=== PATIENT | male | born 1990 | race Caucasian/White ===

== ENCOUNTER 2018-05-13 06:21 | Inpatient (IN) | payer MEDICAID ==
[~2018-05-13] VITALS: Ht 175.3 cm; Wt 58.1 kg
--- NOTE | 2018-05-13 06:30 | NUR ---
PT BIB [facility]. COMP OF HAVING "R FOOT PAIN" NO ACUTE DISTRESS AT THIS TIME. PT ALERT AND RESPONSIVE TO VERBAL STIMULI. AWAITING MD PHELPS.
--- NOTE | 2018-05-13 07:22 | NUR ---
RADIO AT BEDSIDE.
--- NOTE | 2018-05-13 07:28 | NUR ---
RECEIVED REPORT FROM CHONG THOMAS FOR YOSEF
--- NOTE | 2018-05-13 07:48 | NUR ---
RADIOLOGY AT BEDSIDE FOR CXR
[2018-05-13 07:51] LABS: BASOPHILS # (AUTO) 0.1 /CMM (0.0-0.2); BASOPHILS % (AUTO) 0.7 % (0.0-2.0); EOSINOPHILS % (AUTO) 1.1 % (0.0-6.0); HEMATOCRIT 34 % (39-51); LYMPHOCYTES # (AUTO) 1.5 /CMM (0.8-4.8); LYMPHOCYTES % (AUTO) 15.2 % (20.0-44.0); MEAN CORPUSCULAR HGB CONC 33 g/dl (31.0-36.0); MEAN CORPUSCULAR VOLUME 93 fL (80-96); MONOCYTES # (AUTO) 0.8 /CMM (0.1-1.30); MONOCYTES % (AUTO) 7.5 % (2.0-12.0); NEUTROPHILS # (AUTO) 7.6 /CMM (1.8-8.9); NEUTROPHILS % (AUTO) 75.5 % (43.0-81.0); PLATELET COUNT (AUTO) 450 /CMM (150-450); RED BLOOD CELL COUNT(AUTO) 3.61 MIL/uL (4.5-6.0); WHITE BLOOD COUNT (AUTO) 10.1 K/uL (4.3-11.0)
[2018-05-13] MEDS ORDERED: KETOROLAC TROMETHAMINE INJ 30 MG/ML VIAL ONE (07:55)
[2018-05-13] MEDS ORDERED: PROPOFOL 20 ML IV ONE (07:55)
[2018-05-13] MEDS ORDERED: KETOROLAC TROMETHAMINE INJ 30 MG/ML VIAL IV ONE (08:00)
[2018-05-13] MEDS ORDERED: PROPOFOL 1,000 MG/100 ML BOTTLE IV ONE (08:00)
[2018-05-13 08:04] LABS: CALCIUM, SERUM 9.5 mg/dL (8.5-10.1); CREATININE 0.9 mg/dL (0.6-1.3); POTASSIUM 3.7 mmol/L (3.5-5.1)
--- NOTE | 2018-05-13 08:29 | NUR ---
Paged Yevgeniy Childers for consult
--- NOTE | 2018-05-13 08:29 | NUR ---
Paged Brayan Saldana for admission
--- NOTE | 2018-05-13 09:23 | NUR ---
REPORT GIVEN TO CHONG BAJWA FOR YOSEF
--- NOTE | 2018-05-13 10:00 | NUR ---
PT ARRIVED TO THE UNIT AT THIS TIME
[2018-05-13 10:05] VITALS: BP 134/82
--- NOTE | 2018-05-13 10:15 | NUR ---
ADMISSION NOTE PT BROUGHT TO FLOOR VIA DARWIN, A/O X3, BREATHING EVEN AND UNLABORED ON 2L VIA NC, NO COMPLAINTS OF PAIN OR DISTRESS AT THIS TIME, LEFT AC 20G IS PATENT AND INTACT, NOTED TO HAVE RIGHT ELBOW LACERATION WITH MARY/LEFT LEG SCAB/ LEFT FOOT WITH SCAB/ RIGHT HAND DISCOLORATION, PT IS CURRENTLY ON BEDREST, SAFETY PRECAUTIONS IN PLACE, CALL LIGHT WITHIN REACH, WILL MONITOR ACCORDINGLY
[2018-05-13] MEDS ORDERED: ACETAMINOPHEN 325 MG TABLET PO PRN (11:00)
[2018-05-13] MEDS ORDERED: ONDANSETRON HCL/PF 4 MG/2 ML VIAL IVP PRN (11:00)
[2018-05-13] MEDS ORDERED: ZOLPIDEM TARTRATE 5 MG TABLET PO PRN (11:00)
[2018-05-13] MEDS: IV NS 0.9% 1,000 ML IV PRN (13:20)
[2018-05-13 16:00] VITALS: BP 131/83
--- NOTE | 2018-05-13 16:13 | NUR ---
patient was offered bath multiple times but he refuses
--- NOTE | 2018-05-13 18:00 | NUR ---
PT ACCEPTED BED BATH
--- NOTE | 2018-05-13 18:20 | NUR ---
RN CLOSING NOTES PT IN BED AT LOWEST AND LOCKED POSITION WITH SIDE RAILS UP X2, A/O X3, BREATHING EVEN AND UNLABORED ON 2L VIA NC, PATIENT STATED A PAIN OF 7 BUT WHEN PAIN MEDS WERE OFFERED HE REFUSED, IV PATENT AND INTACT, SAFETY PRECAUTIONS IN PLACE, CALL LIGHT WITHIN REACH, ALL NEEDS ATTENDED TO, WILL ENDORSE TO CONVERTIBLE TOP INSTALLER RN FOR CONTINUITY OF CARE
[2018-05-13 19:58] VITALS: BP 107/60
--- NOTE | 2018-05-13 20:09 | NUR ---
RN MS OPENING NOTES RECEIVED PT IN BED, AWAKE, ALERT ORIENTED X4. BREATHING EVEN AND UNLABORED ON ROOM AIR. DENIES PAIN OR DISCOMFORT AT THE MOMENT. IV ACCESS ON THE L AC #20 WITH NS @75ML/HR. SPLINT ON THE RIGHT ANKLE IN PLACE, SURGERY TOMORROW, NPO AFTER MIDNIGHT. BED IN LOWEST LOCKER POSITION CALL LIGHT WITHIN REACH AT ALL TIMES, WILL CONTINUE TO MONITOR.
--- NOTE | 2018-05-14 06:13 | NUR ---
RN MS CLOSING NOTES PT REMAINS IN BED AWAKE ALERT AND ORIENTED X4, BREATHING EVEN AND UNLABORED ON ROOM AIR. IV ACCESS ON THE L AC#20 WITH NS @75ML/HR. NPO SINCE MIDNIGHT WITH POSSIBLE SURGICAL PROCEDURE IN THE DAY. NO SIGNIFICANT CHANGE IN CONDITION DURING SHIFT. BED IN LOWEST LOCKED POSITION, CALL LIGHT WITHIN REACH AT ALL TIMES. WILL ENDORSE TO DAY NURSE FOR YOSEF
[2018-05-14 07:26] LABS: BASOPHILS % (AUTO) 0.2 % (0.0-2.0); EOSINOPHILS % (AUTO) 1.8 % (0.0-6.0); HEMATOCRIT 34 % (39-51); HEMOGLOBIN 11.5 g/dL (13.5-17.5); LYMPHOCYTES # (AUTO) 1.2 /CMM (0.8-4.8); MEAN CORPUSCULAR HGB CONC 33 g/dl (31.0-36.0); MEAN CORPUSCULAR VOLUME 93 fL (80-96); MONOCYTES # (AUTO) 0.6 /CMM (0.1-1.30); MONOCYTES % (AUTO) 6.3 % (2.0-12.0); NEUTROPHILS # (AUTO) 8.2 /CMM (1.8-8.9); NEUTROPHILS % (AUTO) 79.7 % (43.0-81.0); PLATELET COUNT (AUTO) 444 /CMM (150-450); RED BLOOD CELL COUNT(AUTO) 3.69 MIL/uL (4.5-6.0); WHITE BLOOD COUNT (AUTO) 10.2 K/uL (4.3-11.0)
--- NOTE | 2018-05-14 07:48 | NUR ---
MS RN Opening Note Patient is currently asleep, resting in bed but easily arousable to name. Alert and oriented x 4. Able to make needs known, no complaints of pain or signs of distress at this time. Respirations even and unlabored, saturating on room air. Peripheral IV to the left AC 20 gauge, intact, patent and running NS at 75 ml/hr. Patient noted to have splint and wrap to the right ankle, clean, dry and intact. Currently NPO for possible surgical procedure. Safety and Fall precautions in place: bed in lowest and locked position, side rails up x2, call light and personal possessions within reach. Patient verbalized understanding of safety measures and current plan of care. Will continue to monitor and intervene as needed.
[2018-05-14 07:49] LABS: CALCIUM, SERUM 8.6 mg/dL (8.5-10.1); CREATININE 0.9 mg/dL (0.6-1.3); MAGNESIUM 1.6 mg/dL (1.8-2.4); PHOSPHORUS 2.5 mg/dL (2.5-4.9); POTASSIUM 3.4 mmol/L (3.5-5.1)
[2018-05-14 08:00] VITALS: BP 133/75
[2018-05-14 08:13] VITALS: BP 133/73
--- NOTE | 2018-05-14 11:13 | NUR ---
WOUND CARE CONSULT: PT PRESENTS WITH RT ELBOW STAPLED AREA WITH PURULENT DRAINAGE, PRESENT ON ADMISSION. RT LOWER LEG SPLINT NOTED. DEFER TO ORTHO FOR ABOVE. PT IS CONTINENT AT THIS TIME AND INDEPENDENT WITH BED MOBILITY. WILL SEE PRN. Addendum: 05/14/18 at 1114 by GABRIELLE GREEN WNDNU Amended: Links added.
[2018-05-14] MEDS: POTASSIUM CL. PREMIX PERIPHER. 50 ML IV SCH ×2 (11:26→12:26)
[2018-05-14] MEDS: HYDROCODONE/APAP 10/325MG 1 EA TABLET PO PRN (11:48)
--- NOTE | 2018-05-14 12:00 | NUR ---
Social service consult requested by Dr. Saldana for homelessness. Pt. is a 27 year old male who was admitted to [facility] for an ankle fracture. CHRISTI met with pt. bedside. Pt. is alert and oriented x 4. Pt. has tattoos on his arms. Pt. was cooperative with SW during the assessment. Pt. states he has been homeless for a couple of years on the streets in [place]. Pt's emergency contact is his mother Suzanne . According to the pt. his mother is aware of his hospitalization. Pt. receives approximately $800/ month in SSI and is willing to pay $600/ month for an independent living. CHRISTI referred pt. to [facility] from [facility] placement . [facility] met with the pt. and will look into an Independent living for the pt and follow up with SW. Pt. 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 Pt. denies smoking cigarettes as well. No other social service needs are required at this time. SW to await pt. being accepted into an Independent Living, if not pt. is willing to go to the [facility] upon discharge.
[2018-05-14] MEDS: Magnesium 1GM/D5W 100ML PREMIX 100 ML IV SCH ×2 (12:27→13:47)
[2018-05-14 16:12] VITALS: BP 113/63
[2018-05-14 16:21] VITALS: BP 113/63
--- NOTE | 2018-05-14 17:53 | NUR ---
MS CHONG Closing Note Patient is currently asleep, resting in bed but easily arousable to name. Alert and oriented x 4. Able to make needs known, no complaints of pain or signs of distress at this time. Respirations even and unlabored, saturating on room air. Peripheral IV to the left AC 20 gauge, intact, patent and running NS at 75 ml/hr. Patient noted to have splint and wrap to the right ankle, clean, dry and intact. Patient to be NPO at midnight for surgery, R ORIF tomorrow 05/15/18. Pain controlled with PRN medications. All due medications given. Safety and Fall precautions in place: bed in lowest and locked position, side rails up x2, call light and personal possessions within reach. Patient verbalized understanding of safety measures and current plan of care. Will endorse to machinist 2nd shift for continuity of care. Addendum: 05/14/18 at 1756 by SRAVANI TAYLOR RN Per ortho team, wound care to consult on patient's right elbow incision/wound. Infectious disease consult requested as well.
--- NOTE | 2018-05-14 19:55 | NUR ---
RN MS OPENING NOTES RECEIVED PT IN BED, AWAKE, ALERT ORIENTED X4. BREATHING EVEN AND UNLABORED ON ROOM AIR. SPLINT ON THE RIGHT ANKLE IN PLACE, DENIES PAIN OR DISCOMFORT AT THE MOMENT. IV ACCESS ON THE L AC #20 WITH NS @75ML/HR. POSSIBLE SURGERY TOMORROW, NPO AFTER MIDNIGHT, PT AWARE. BED IN LOWEST LOCKER POSITION CALL LIGHT WITHIN REACH AT ALL TIMES, WILL CONTINUE TO MONITOR.
[2018-05-15] VITALS: BP_SYST 117; BP_SYST 125; BP_DIAS 64; BP_DIAS 76
[2018-05-15] MEDS: IV NS 0.9% 1,000 ML IV PRN (05:33)
--- NOTE | 2018-05-15 06:16 | NUR ---
RN MS CLOSING NOTES PT REMAINS IN BED AWAKE ALERT AND ORIENTED X4, BREATHING EVEN AND UNLABORED ON ROOM AIR. IV ACCESS ON THE L AC#20 WITH NS @75ML/HR. NO COMPLAINT OF PAIN OR DISCOMFORT AT THIS TIME. REFUSED BED BATH. TOTAL OUTPUT OF 1950ML. NO SIGNIFICANT CHANGE IN CONDITION DURING SHIFT. BED IN LOWEST LOCKED POSITION, CALL LIGHT WITHIN REACH AT ALL TIMES. WILL ENDORSE TO DAY NURSE FOR YOSEF
[2018-05-15 07:32] LABS: CALCIUM, SERUM 9.2 mg/dL (8.5-10.1); CREATININE 0.8 mg/dL (0.6-1.3); MAGNESIUM 1.7 mg/dL (1.8-2.4); POTASSIUM 3.9 mmol/L (3.5-5.1)
--- NOTE | 2018-05-15 07:42 | NUR ---
MS RN Opening Note Patient is currently asleep, resting in bed but easily arousable to name. Alert and oriented x 4. Able to make needs known, no complaints of pain or signs of distress at this time. Respirations even and unlabored, saturating on room air. Peripheral IV to the left AC 20 gauge, intact, patent and running NS at 75 ml/hr. Patient noted to have splint and wrap to the right ankle, clean, dry and intact. Wound and Infectious disease consult this shift. R ORIF postponed for now per ortho team, patient aware. Safety and Fall precautions in place: bed in lowest and locked position, side rails up x2, call light and personal possessions within reach. Patient verbalized understanding of safety measures and current plan of care. Will continue to monitor and intervene as needed.
[2018-05-15 08:00] VITALS: BP 125/61
[2018-05-15] MEDS ORDERED: VANCOMYCIN 1 GM in IV D5W 250 ML IV ONE (11:00)
[2018-05-15] MEDS ORDERED: FEE PK DOSING 1 MIN EA MC ONE (11:13)
[2018-05-15] MEDS: HYDROCODONE/APAP 10/325MG 1 EA TABLET PO PRN (11:40)
[2018-05-15] MEDS: Magnesium 1GM/D5W 100ML PREMIX 100 ML IV SCH ×2 (12:19→15:00)
[2018-05-15] MEDS: PIPERACILLIN /TAZOBACTAM 3.375 G in IV D5W 50 ML IV SCH ×3 (12:42→23:07)
[2018-05-15] MEDS ORDERED: Magnesium 1GM/D5W 100ML PREMIX 100 ML IV SCH (14:00)
[2018-05-15 16:00] VITALS: BP 117/57
--- NOTE | 2018-05-15 19:00 | NUR ---
MS RN Closing Note Patient is currently asleep, resting in bed but easily arousable to name. Alert and oriented x 3-4, come episodes of confusion of time. Able to make needs known, no complaints of pain or signs of distress at this time. Respirations even and unlabored, saturating on room air. Peripheral IV to the left AC 20 gauge, intact, patent and running Zosyn as ordered, IVPB on NS. Patient noted to have splint and wrap to the right ankle, clean, dry and intact. Patient also with a dressing to the right elbow/forearm incision, clean, dry and intact. R ORIF postponed for now per ortho team, patient aware. Safety and Fall precautions in place: bed in lowest and locked position, side rails up x2, call light and personal possessions within reach. Patient verbalized understanding of safety measures and current plan of care. Will endorse to supervisor type photography for continuity of care.
--- NOTE | 2018-05-15 19:05 | NUR ---
RN MS OPENING NOTES RECEIVED PATIENT IN BED SLEEPING BUT EASILY AROUSABLE,RESPIRATIONS EVEN AND UNLABORED WITH EQUAL RISE AND FALL OF CHEST, DENIES ANY PAIN OR DISCOMFORT AT THIS TIME , ALERT AND ORIENTED X 3-4 ABLE TO MAKE NEEDS KNOWN, IV SITE TO LEFT AC #20 G INTACT AND PATENT , NO REDNESS, NO INFILTRATION PRESENT, URINAL AT BEDSIDE, FLUIDS AND TOILETING OFFERED, ON ISOLATION FOR MRSA NARES WITH CONTACT PRECAUTIONS RENDERED, ORIENTED TO STAFF AND CALL LIGHT AND KEPT WITHIN REACH, DRESSING REMAIN INTACT TO RIGHT ANKLE AND RIGHT ELBOW, SNACK PROVIDED, ALL NEEDS ATTENDED AT THIS TIME WILL CONTINUE TO MONITOR, SAFETY PRECAUTIONS IN PLACE, LOW BED AND LOCKED BED ALARM IN PLACE. REMANS COMFORTABLE AT THIS TIME.
[2018-05-15 20:27] VITALS: BP 117/64
[2018-05-15] MEDS: VANCOMYCIN 0.75 GM in IV D5W 250 ML IV SCH (21:18)
[2018-05-15] MEDS ORDERED: MUPIROCIN OINT 2% 22 GM TUBE ONE (22:51)
--- NOTE | 2018-05-15 23:04 | NUR ---
RN MS NOTES BACTROBAN OINT NOT IN PATIENT CASSETTE OR IN ROOM FAXED RN SUP RECEIVED OINTMENT AT THIS TIME WILL APPLY NOW
[2018-05-15] MEDS: MUPIROCIN OINT 2% 22 GM TUBE SCH (23:06)
[2018-05-16] MEDS: VANCOMYCIN 0.75 GM in IV D5W 250 ML IV SCH ×3 (03:11→20:25)
[2018-05-16] MEDS: PIPERACILLIN /TAZOBACTAM 3.375 G in IV D5W 50 ML IV SCH ×3 (06:03→17:00)
--- NOTE | 2018-05-16 06:35 | NUR ---
RN MS CLOSING NOTES PATIENT IN BED AWAKE ALERT AND ORIENTED X 4 ABLE TO MAKE NEEDS KNOWN, RESPIRATIONS EVEN AND UNLABORED WITH EQUAL RISE AND FALL OF CHEST, DENIES ANY PAIN OR DISCOMFORT AT THIS TIME, URINAL PROVIDED, SNACKS AND FLUIDS OFFERED, IV SITE TO LEFT AC #20 G INTACT AND PATENT, IVF RUNNING ORDERED. NO REDNESS, NO INFILTRATION PRESENT,SAFETY PRECAUTIONS IN PLACE, ALL NEEDS ATTENDED, DRESSINGS REMAIN INTACT TO RIGHT ANKLE AND RIGHT ELBOW, ALL DUE MEDS GIVEN WILL CONTINUE TO MONITOR AND ENDORSE TO NEXT SHIFT.
[2018-05-16 06:52] LABS: BASOPHILS # (AUTO) 0.1 /CMM (0.0-0.2); BASOPHILS % (AUTO) 0.8 % (0.0-2.0); EOSINOPHILS % (AUTO) 1.6 % (0.0-6.0); HEMATOCRIT 38 % (39-51); HEMOGLOBIN 12.4 g/dL (13.5-17.5); LYMPHOCYTES # (AUTO) 1.7 /CMM (0.8-4.8); LYMPHOCYTES % (AUTO) 17.3 % (20.0-44.0); MEAN CORPUSCULAR HGB CONC 33 g/dl (31.0-36.0); MEAN CORPUSCULAR VOLUME 93 fL (80-96); MONOCYTES # (AUTO) 0.7 /CMM (0.1-1.30); MONOCYTES % (AUTO) 7.2 % (2.0-12.0); NEUTROPHILS # (AUTO) 7.2 /CMM (1.8-8.9); NEUTROPHILS % (AUTO) 73.1 % (43.0-81.0); PLATELET COUNT (AUTO) 475 /CMM (150-450); RED BLOOD CELL COUNT(AUTO) 4.07 MIL/uL (4.5-6.0); WHITE BLOOD COUNT (AUTO) 9.8 K/uL (4.3-11.0)
[2018-05-16 07:06] LABS: CALCIUM, SERUM 9.5 mg/dL (8.5-10.1); CREATININE 0.9 mg/dL (0.6-1.3); MAGNESIUM 1.9 mg/dL (1.8-2.4); PHOSPHORUS 3.2 mg/dL (2.5-4.9); POTASSIUM 4.4 mmol/L (3.5-5.1)
--- NOTE | 2018-05-16 07:27 | NUR ---
RN OPENING NOTES PT RECIEVED IN BED AT LOWEST AND LOCKED POSITION WITH SIDE RAILS UPX2, A/O X4, NO S/S OF PAIN OR DISTRESS NOTED AT THIS TIME, BREATHING EVEN AND UNLABORED, IV PATENT AND INTACT, SAFETY PRECAUTIONS IN PLACE, CALL LIGHT WITHIN REACH, WILL MONITOR ACCORDINGLY
[2018-05-16 08:00] VITALS: BP 116/63
[2018-05-16] MEDS: MUPIROCIN OINT 2% 22 GM TUBE SCH ×2 (08:56→22:20)
[2018-05-16] MEDS: DAKINS QUARTER STRENGTH (0.125%) 480 ML BOTTLE TOP SCH (08:56)
[2018-05-16 16:00] VITALS: BP 116/61
[2018-05-16] MEDS: LACTOBACILLUS RHAMNOSUS GG 1 EACH CAP.SPRINK PO SCH (16:05)
--- NOTE | 2018-05-16 18:41 | NUR ---
RN CLOSING NOTES PT IN BED AT LOWEST AND LOCKED POSITION WITH SIDE RAILS UPX2, A/O X4, NO S/S OF PAIN OR DISTRESS NOTED AT THIS TIME, BREATHING EVEN AND UNLABORED, IV PATENT AND INTACT, RIGHT ARM DRESSING WAS CHANGED, SAFETY PRECAUTIONS IN PLACE, CALL LIGHT WITHIN REACH, ALL NEEDS WERE ATTENDED TO, WILL ENDORSE TO BODY MAKER RN FOR CONTINUITY OF CARE.
--- NOTE | 2018-05-16 19:00 | NUR ---
RN MS OPENING NOTES RECEIVED PATIENT IN BED SLEEPING BUT EASILY AROUSABLE,RESPIRATIONS EVEN AND UNLABORED WITH EQUAL RISE AND FALL OF CHEST, DENIES ANY PAIN OR DISCOMFORT AT THIS TIME , ALERT AND ORIENTED X 3-4 ABLE TO MAKE NEEDS KNOWN, IV SITE TO LEFT AC #20 G INTACT AND PATENT , NO REDNESS, NO INFILTRATION PRESENT IVF RUNNING ORDERED, URINAL AT BEDSIDE, FLUIDS AND TOILETING OFFERED, ON ISOLATION FOR MRSA NARES WITH CONTACT PRECAUTIONS RENDERED, ORIENTED TO STAFF AND CALL LIGHT AND KEPT WITHIN REACH, DRESSING REMAIN INTACT TO RIGHT ANKLE AND RIGHT ELBOW, SNACKS PROVIDED, ALL NEEDS ATTENDED AT THIS TIME WILL CONTINUE TO MONITOR, SAFETY PRECAUTIONS IN PLACE, LOW BED AND LOCKED BED ALARM IN PLACE. REMAINS COMFORTABLE AT THIS TIME.
[2018-05-16 20:00] VITALS: BP 106/57
[2018-05-16 20:55] VITALS: BP 106/57
[2018-05-17] MEDS: PIPERACILLIN /TAZOBACTAM 3.375 G in IV D5W 50 ML IV SCH ×4 (00:09→17:19)
--- NOTE | 2018-05-17 03:04 | NUR ---
RN MS NOTES RIGHT ELBOW DRESSING NOTED DISLODGING , WOUND CARE PROVIDED TO SITE ORDERED NEW DRESSINGS APPLIED. TOLERATED TREATMENT WELL ,NOTED PINK WOUND BED WITH MARY
--- NOTE | 2018-05-17 03:29 | NUR ---
RN MS NOTES PATIENT REFUSED VANCO TROUGH SCHEDULED FOR 299 EXPLAINED TO PATIENT BENEFIT. STATED "MIGHT LET US DO IN AM" CALLED RN PATIENT SERVICES PHARMACY AWARE OF FIRST VANCO TROUGH PER PHARMACY CONTINUE THIS DOSE
--- NOTE | 2018-05-17 03:35 | NUR ---
RN MS NOTES PATIENT REFUSED VANCOMYCIN AT THIS TIME. EXPLAINED RISKS AND BENEFITS REFUSED.
[2018-05-17] MEDS: VANCOMYCIN 0.75 GM in IV D5W 250 ML IV SCH ×3 (03:38→20:27)
--- NOTE | 2018-05-17 03:40 | NUR ---
rn ms notes refused to have ivf changed at this time, unable to change bag.will try to change at a different time.
[2018-05-17] MEDS: IV NS 0.9% 1,000 ML IV PRN (05:30)
--- NOTE | 2018-05-17 06:53 | NUR ---
RN MS CLOSING NOTES RECEIVED CALL FROM JUANY THOMSON EXPLAINED PATIENT REFUSED VANCO TROUGH AND VANCOMYCIN DOSE, EXPLAINED PATIENT AGREED TO LABS IN AM , PER PHARM DO VANCO TROUGH WITH AM LABS, PATIENT AGREED TO AM LABS AT THIS TIME , AWAKE ALERT AND ORIENTED X 4, RESPIRATIONS EVEN AND UNLABORED WITH EQUAL RISE AND FALL OF CHEST, DENIES ANY PAIN OR DISCOMFORT AT THIS TIME, ALL LINENS AND GOWN CHANGED, DRESSING REMAIN INTACT TO RIGHT ELBOW AND RIGHT LOWER EXTREMITY, HAD 1 BM THIS SHIFT, IV SITE TO LEFT UPPER ARM #20 G INTACT AND PATENT IVF RUNNING ORDERED, ALL NEEDS ATTENDED, WILL CONTINUE TO MONITOR AND ENDORSE TO NEXT SHIFT.
[2018-05-17 07:17] LABS: BASOPHILS # (AUTO) 0.1 /CMM (0.0-0.2); BASOPHILS % (AUTO) 1.4 % (0.0-2.0); EOSINOPHILS % (AUTO) 2.4 % (0.0-6.0); HEMATOCRIT 39 % (39-51); HEMOGLOBIN 12.8 g/dL (13.5-17.5); LYMPHOCYTES # (AUTO) 1.5 /CMM (0.8-4.8); LYMPHOCYTES % (AUTO) 19.4 % (20.0-44.0); MEAN CORPUSCULAR HGB CONC 33 g/dl (31.0-36.0); MEAN CORPUSCULAR VOLUME 94 fL (80-96); MONOCYTES # (AUTO) 0.5 /CMM (0.1-1.30); MONOCYTES % (AUTO) 6.1 % (2.0-12.0); NEUTROPHILS # (AUTO) 5.6 /CMM (1.8-8.9); NEUTROPHILS % (AUTO) 70.7 % (43.0-81.0); PLATELET COUNT (AUTO) 498 /CMM (150-450); WHITE BLOOD COUNT (AUTO) 7.9 K/uL (4.3-11.0)
[2018-05-17 07:35] LABS: CALCIUM, SERUM 9.4 mg/dL (8.5-10.1); CREATININE 0.9 mg/dL (0.6-1.3); MAGNESIUM 1.8 mg/dL (1.8-2.4); PHOSPHORUS 3.8 mg/dL (2.5-4.9); POTASSIUM 4.1 mmol/L (3.5-5.1)
[2018-05-17 08:00] VITALS: BP_SYST 138; BP_SYST 143; BP_DIAS 67; BP_DIAS 74
[2018-05-17] MEDS: LACTOBACILLUS RHAMNOSUS GG 1 EACH CAP.SPRINK PO SCH ×2 (08:04→16:17)
[2018-05-17] MEDS: MUPIROCIN OINT 2% 22 GM TUBE SCH ×2 (08:05→20:31)
[2018-05-17] MEDS: DAKINS QUARTER STRENGTH (0.125%) 480 ML BOTTLE TOP SCH (08:05)
--- NOTE | 2018-05-17 18:36 | NUR ---
RN CLOSING NOTES PT IN BED AT LOWEST AND LOCKED POSITION WITH SIDE RAILS UPX2, A/O X4, NO S/S OF PAIN OR DISTRESS NOTED AT THIS TIME, BREATHING EVEN AND UNLABORED, IV PATENT AND INTACT, CONSENTS WERE SIGNED FOR SURGICAL PROCEDURE THAT WILL TAKE PLACE TOMORROW, CURRENTLY NPO, SAFETY PRECAUTIONS IN PLACE, CALL LIGHT WITHIN REACH, ALL NEEDS WERE ATTENDED TO, WILL ENDORSE TO CHEESE SPECIALIST FOR CONTINUITY OF CARE
--- NOTE | 2018-05-17 19:15 | NUR ---
MS/RN OPENING NOTES PT WITH EYES CLOSED. OPENS EYES TO NAME. ON ROOM AIR, BREATHING EVEN AND UNLABORED. DENIES PAIN AT THIS TIME. PT FOR SURGERY TOMORROW. PT AWARE OF NPO STATUS POST MIDNIGHT. BED IN LOW/LOCKED POSITION WITH CALL LIGHT IN REACH. SIDE RAILS UP X3. DRESSING TO RIGHT ELBOW C/D/I. RIGHT LEG SPLINT ELEVATED ON PILLOW. WILL CONTINUE TO MONITOR
[2018-05-17 20:00] VITALS: BP 121/70
[2018-05-18] MEDS: IV NS 0.9% 1,000 ML IV PRN (00:12)
[2018-05-18] MEDS: PIPERACILLIN /TAZOBACTAM 3.375 G in IV D5W 50 ML IV SCH ×2 (00:12→06:59)
[2018-05-18] MEDS: VANCOMYCIN 0.75 GM in IV D5W 250 ML IV SCH ×2 (05:12→12:49)
[2018-05-18 05:31] LABS: BASOPHILS % (AUTO) 0.5 % (0.0-2.0); EOSINOPHILS % (AUTO) 2.8 % (0.0-6.0); HEMATOCRIT 37 % (39-51); HEMOGLOBIN 11.9 g/dL (13.5-17.5); LYMPHOCYTES # (AUTO) 1.7 /CMM (0.8-4.8); LYMPHOCYTES % (AUTO) 25.9 % (20.0-44.0); MEAN CORPUSCULAR HGB CONC 32 g/dl (31.0-36.0); MEAN CORPUSCULAR VOLUME 93 fL (80-96); MONOCYTES # (AUTO) 0.4 /CMM (0.1-1.30); MONOCYTES % (AUTO) 6.2 % (2.0-12.0); NEUTROPHILS # (AUTO) 4.2 /CMM (1.8-8.9); NEUTROPHILS % (AUTO) 64.6 % (43.0-81.0); PLATELET COUNT (AUTO) 490 /CMM (150-450); RED BLOOD CELL COUNT(AUTO) 3.97 MIL/uL (4.5-6.0); WHITE BLOOD COUNT (AUTO) 6.6 K/uL (4.3-11.0)
[2018-05-18 05:45] LABS: CALCIUM, SERUM 9.3 mg/dL (8.5-10.1); CREATININE 0.9 mg/dL (0.6-1.3); MAGNESIUM 1.7 mg/dL (1.8-2.4); PHOSPHORUS 3.6 mg/dL (2.5-4.9); POTASSIUM 4.2 mmol/L (3.5-5.1)
--- NOTE | 2018-05-18 07:00 | NUR ---
MS/RN CLOSING NOTES PT WITH EYES CLOSED. OPENS EYES TO NAME. ON ROOM AIR, BREATHING EVEN AND UNLABORED. NO S/S OF SOB OR PAIN AT THIS TIME. KEPT NPO FOR SCHEDULED SURGERY TODAY. CONSENTS SIGNED. CHECKLIST PARTIALLY COMPLETED. NO SIGNIFICANT CHANGES OVERNIGHT. ALL NEEDS MET. BED IN LOW/LOCKED POSITION WITH CALL LIGHT IN REACH. SIDE RAILS UP X3. ENDORSED TO DAY SHIFT RN YOSEF.
--- NOTE | 2018-05-18 07:05 | NUR ---
RN OPENING NOTES RECEIVED PATIENT IN BED RESTING. A/OX3-4, NO ACUTE DISTRESS, NO SOB. DENIED PAIN OR DISCOMFORT AT THIS TIME. IV ACCESS INTACT AND PATENT. KEPT NPO, SCHEDULED FOR SURGERY TODAY. KEPT PATIENT SAFE AND COMFORTABLE. BED IN LOW/LOCKED POSITION, SIDERAILS UPX2, CALL LIGHT IN REACH. WILL CONTNUE TO MONIOTR ACCORDINGLY.
[2018-05-18 08:00] VITALS: BP 107/69
[2018-05-18] MEDS: LACTOBACILLUS RHAMNOSUS GG 1 EACH CAP.SPRINK PO SCH ×2 (09:00→17:42)
[2018-05-18] MEDS: DAKINS QUARTER STRENGTH (0.125%) 480 ML BOTTLE TOP SCH (09:31)
[2018-05-18] MEDS: MUPIROCIN OINT 2% 22 GM TUBE SCH ×2 (09:33→21:45)
[2018-05-18] MEDS: Magnesium 1GM/D5W 100ML PREMIX 100 ML IV SCH ×2 (10:49→11:49)
--- NOTE | 2018-05-18 13:10 | NUR ---
PICKED UP FOR SURGERY BY OR TRANSP[facility]
[2018-05-18] MEDS ORDERED: MIDAZOLAM HCL 2 MG/2ML VIAL ONE (13:34)
[2018-05-18] MEDS ORDERED: ANESTHESIA TRAY IN PYXIS 1 EA TRAY MC ONE (13:34)
[2018-05-18] MEDS ORDERED: BUPIVACAINE MPF 0.5% W/EPI INJ 30 ML VIAL ONE (13:37)
[2018-05-18] MEDS ORDERED: LIDOCAINE HCL/PF 1% 30 ML SDV ONE (13:37)
[2018-05-18] MEDS ORDERED: BACITRACIN 50000 UNITS/VIAL ONE (13:38)
--- NOTE | 2018-05-18 15:00 | NUR ---
RETURNED TO THE UNIT IN STABLE CONDITION. AWAKE AND RESPONSIVE. ORDERS TO RESUME PRE-OP ORDERS NOTED AND WILL CARRY OUT. VS SAPPHIRE. SHANA CONTINUE TO MONIOTR ACCORDINGLY
[2018-05-18 15:05] VITALS: BP 116/58
[2018-05-18] MEDS: CLINDAMYCIN HCL 150 MG CAPSULE PO SCH ×2 (15:14→21:41)
--- NOTE | 2018-05-18 18:01 | NUR ---
PULLED OUT AND WASTED CLINDAMYCIN 600MG, OPENED WRONG TIME.
[2018-05-18 18:08] LABS: APPEARANCE,URINE CLEAR (CLEAR); BILIRUBIN,URINE NEGATIVE (NEGATIVE); BLOOD, URINE NEGATIVE Ery/uL (NEGATIVE); COLOR,URINE YELLOW (YELLOW); KETONES,URINE NEGATIVE (NEGATIVE); LEUKOCYTE ESTERASE ,URINE NEGATIVE (NEGATIVE); NITRITE, URINE NEGATIVE (NEGATIVE); PROTEIN,URINE NEGATIVE (NEGATIVE); UGLUCOSE TRACE mg/dL (NEGATIVE); UROBILINOGEN,URINE 0.2 EU/dL (0.2)
[2018-05-18 18:37] LABS: BACTERIA,URINE None seen /HPF (None Seen); RBC,URINE NONE SEEN /HPF (0-2); SQUAMOUS EPITHELIAL CELL,UR Few /HPF (None Seen); WBC,URINE 0-2 /HPF (0-3)
--- NOTE | 2018-05-18 19:35 | NUR ---
RN CLOSING NOTES PATIENT IN STABLE CONDITION. ALL DUE MEDICATIONS ADMINISTERED ORDERED. ALL NEEDS ATTENDED AND PROVIDED. KEPT PATIENT SAFE AND COMFORTABLE. BED IN LOW/LOCKED POSITION, SIDERAILS UPX2, SEMFOWLERS, CALL LIGHT IN REACH. ENDORSED TO NIGHT RN FOR YOSEF
--- NOTE | 2018-05-18 19:55 | NUR ---
RN OPENING NOTES RECEIVED REPORT FROM DAYSHIFT RN. FOUND Pt ASLEEP, RESTING IN BED; EASILY AWAKENED BY NAME. NO S/S OF ACUTE DISTRESS OR SOB NOTED. RESPIRATIONS EVEN AND UNLABORED. Pt IS A/OX3, VERBAL, ABLE TO MAKE NEEDS KNOWN. IV ACCESS ON ANJUM #20G, IVF NS @75ML/HR. SAFETY MEASURES IN PLACE. BED LOW, LOCKED, HOB ELEVATED, SIDE RAILS UP, CALL LIGHT & BEDSIDE TABLE WITHIN REACH. WILL CONTINUE TO MONITOR Pt's CONDITION AND SAFETY THROUGHOUT THE NIGHT.
[2018-05-18 20:00] VITALS: BP 112/58
[2018-05-18 20:23] VITALS: BP 112/58
[2018-05-19] MEDS: IV NS 0.9% 1,000 ML IV PRN (00:09)
[2018-05-19] MEDS: CLINDAMYCIN HCL 150 MG CAPSULE PO SCH ×4 (03:19→21:28)
--- NOTE | 2018-05-19 06:55 | NUR ---
RN CLOSING NOTES NO SIGNIFICANT CHANGES IN Pt's CONDITION. Pt REMAINS STABLE PER BASELINE. NO S/S OF ACUTE DISTRESS OR SOB NOTED DURING THE NIGHT. Pt IS RESTING IN BED. RESPIRATIONS EVEN AND UNLABORED. ALL NEEDS MET AND ATTENDED TO. SAFETY MEASURES IN PLACE. WILL ENDORSE TO DAYSHIFT RN FOR Pt's YOSEF.
[2018-05-19 07:00] VITALS: BP 118/55
--- NOTE | 2018-05-19 07:15 | NUR ---
PATIENT REFUSED AM LABS. AGREED TO GET THEM DONE AFTER BREAKFAST. WILL FOLLOW UP.
--- NOTE | 2018-05-19 07:17 | NUR ---
MS RN OPENING NOTE RECEIVED PATIENT IN BED. ALERT ORIENTED X3. ON ROOM AIR TOLERATING WELL. IN NO APPARENT DISTRESS OR DISCOMFORT AT THIS TIME. RESPIRATIONS EVEN AND UNLABORED. MARIPOSA PAIN AND SOB AT THIS TIME. ABLE TO COMMUNICATE NEEDS. USES BATHROOM AND URINAL FOR ELIMINATION. DRESSING ON LEFT ELBOW IS CLEAN AND INTACT. LEFT UPPER ARM 20G IVC WITH NS RUNNING AT 75ML.HR, PATENT AND INTACT. PATIENT KEPT COMFORTABLE. PER NIGHT RN REFUSED TO BE CLEANED. ALL NEEDS ATTENDED. SAFETY MEASURES IN PLACE, BED IN LOW LOCKED POSITION, SIDE RAILS UP X2, CALL LIGHT WITHIN EASY REACH. WILL CONTINUE TO MONITOR.
[2018-05-19 08:00] VITALS: BP 96/51
[2018-05-19] MEDS: LACTOBACILLUS RHAMNOSUS GG 1 EACH CAP.SPRINK PO SCH ×2 (08:54→17:21)
[2018-05-19] MEDS: DAKINS QUARTER STRENGTH (0.125%) 480 ML BOTTLE TOP SCH (08:57)
[2018-05-19] MEDS: MUPIROCIN OINT 2% 22 GM TUBE SCH ×2 (08:59→21:30)
[2018-05-19 09:35] LABS: CALCIUM, SERUM 9.1 mg/dL (8.5-10.1); CREATININE 0.9 mg/dL (0.6-1.3); MAGNESIUM 1.8 mg/dL (1.8-2.4); POTASSIUM 3.7 mmol/L (3.5-5.1)
--- NOTE | 2018-05-19 10:00 | NUR ---
PATIENT REFUSED SKIN ASSESSMENT. REFUSED PERSONAL HYGIENE CARE. ONLY AGREED TO RIGHT ELBOW DRESSING CHANGE LATER IN THE DAY. MD AWARE. WILL CONTINUE TO MONITOR.
[2018-05-19 16:00] VITALS: BP 122/73
--- NOTE | 2018-05-19 18:57 | NUR ---
MS RN CLOSING NOTE PATIENT IN BED. ALERT ORIENTED X3. ON ROOM AIR TOLERATING WELL. IN NO APPARENT DISTRESS OR DISCOMFORT AT THIS TIME. RESPIRATIONS EVEN AND UNLABORED. MARIPOSA PAIN AND SOB AT THIS TIME. ABLE TO COMMUNICATE NEEDS. USES BATHROOM AND URINAL FOR ELIMINATION. DRESSING ON LEFT ELBOW CHANGED, IS CLEAN AND INTACT AT THIS TIME. LEFT UPPER ARM 20G IVC WITH NS RUNNING AT 75ML, PATENT AND INTACT. PATIENT KEPT COMFORTABLE. PATIENT REFUSED HYGIENE CARE. ALL NEEDS ATTENDED. SAFETY MEASURES IN PLACE, BED IN LOW LOCKED POSITION, SIDE RAILS UP X2, CALL LIGHT WITHIN EASY REACH. WILL ENDORSE TO PM NURSE FOR YOSEF.
--- NOTE | 2018-05-19 19:50 | NUR ---
RN OPENING NOTES RECEIVED REPORT FROM DAYSHIFT RNJYOTI. FOUND Pt ASLEEP, RESTING IN BED; EASILY AWAKENED BY NAME. NO S/S OF ACUTE DISTRESS OR SOB NOTED. RESPIRATIONS EVEN AND UNLABORED. Pt IS A/OX3, VERBAL, ABLE TO MAKE NEEDS KNOWN. IV ACCESS ON ANJUM #20G, IVF NS @75ML/HR. SAFETY MEASURES IN PLACE. BED LOW, LOCKED, HOB ELEVATED, SIDE RAILS UP, CALL LIGHT & BEDSIDE TABLE WITHIN REACH. WILL CONTINUE TO MONITOR Pt's CONDITION AND SAFETY THROUGHOUT THE NIGHT.
[2018-05-19 21:57] VITALS: BP 118/55
--- NOTE | 2018-05-19 23:31 | NUR ---
RN NOTES GAVE ENDORSEMENT TO NURSE BALDERAS FOR Pt's YOSEF.
--- NOTE | 2018-05-19 23:35 | NUR ---
PATIENT OPENING NOTES PATIENT ASLEEP IN BED, ARAUSABLE TO VERBAL AND TACTILE STIMULI, NO SOB, NO ACUTE DISTRESS, BREATHING EVEN AND UNLABORED, NO S/S OF PAIN AND DISCOMFORT, WITH ONGOING IV HYDRATION RUNNING 75CC/HR, NO S/S OF COMPLICATION NOTED, IV LINE ON RFA INTACT AND PATENT, NO S/S OF INFILTRATION. ALL NEEDS ATTENDED AND MET, WILL CONTINUE TO MONITOR
[2018-05-20] MEDS ORDERED: CLINDAMYCIN HCL 150 MG CAPSULE PO ONE (02:26)
[2018-05-20] MEDS: CLINDAMYCIN HCL 150 MG CAPSULE PO SCH ×3 (02:39→21:02)
--- NOTE | 2018-05-20 07:28 | NUR ---
NO SIGNIFICANT CHANGE OF CONDITION, NO SOB, NO ACUTE DISTRESS, BREATHING EVEN AND UNLABORED, NO S/S OF PAIN AND DISCOMFORT, ALL DUE MEDS GIVEN ORDERED, ENDORSED TO THE NEXT SHIFT
[2018-05-20 08:00] VITALS: BP 118/69
--- NOTE | 2018-05-20 08:05 | NUR ---
MS RN OPENING NOTE RECEIVED PATIENT IN BED. ALERT ORIENTED X3. ON ROOM AIR TOLERATING WELL. IN NO APPARENT DISTRESS OR DISCOMFORT AT THIS TIME. RESPIRATIONS EVEN AND UNLABORED. MARIPOSA PAIN AND SOB AT THIS TIME. ABLE TO COMMUNICATE NEEDS. USES BATHROOM AND URINAL FOR ELIMINATION. DRESSING ON LEFT ELBOW IS CLEAN AND INTACT. LEFT UPPER ARM 20G IVC WITH NS RUNNING AT 75ML/HR, PATENT AND INTACT. PATIENT KEPT COMFORTABLE. ALL NEEDS ATTENDED. SAFETY MEASURES IN PLACE, BED IN LOW LOCKED POSITION, SIDE RAILS UP X2, CALL LIGHT WITHIN EASY REACH. WILL CONTINUE TO MONITOR.
--- NOTE | 2018-05-20 08:30 | NUR ---
MEDICATION CLEOCIN IS NOT AVAILABLE IN NEITHER OF THE OMNICELLS . PHARMACY MADE AWARE. AWAITING RESTOCK AT THIS TIME.
[2018-05-20] MEDS: LACTOBACILLUS RHAMNOSUS GG 1 EACH CAP.SPRINK PO SCH ×2 (09:45→16:23)
[2018-05-20] MEDS: MUPIROCIN OINT 2% 22 GM TUBE SCH ×2 (09:47→21:03)
[2018-05-20] MEDS: DAKINS QUARTER STRENGTH (0.125%) 480 ML BOTTLE TOP SCH (09:48)
[2018-05-20 09:57] LABS: BASOPHILS # (AUTO) 0.1 /CMM (0.0-0.2); EOSINOPHILS % (AUTO) 1.6 % (0.0-6.0); HEMATOCRIT 39 % (39-51); HEMOGLOBIN 12.7 g/dL (13.5-17.5); LYMPHOCYTES # (AUTO) 1.9 /CMM (0.8-4.8); MEAN CORPUSCULAR HGB CONC 33 g/dl (31.0-36.0); MEAN CORPUSCULAR VOLUME 94 fL (80-96); MONOCYTES # (AUTO) 0.7 /CMM (0.1-1.30); MONOCYTES % (AUTO) 7.1 % (2.0-12.0); NEUTROPHILS # (AUTO) 7.5 /CMM (1.8-8.9); NEUTROPHILS % (AUTO) 72.3 % (43.0-81.0); PLATELET COUNT (AUTO) 518 /CMM (150-450); RED BLOOD CELL COUNT(AUTO) 4.16 MIL/uL (4.5-6.0); WHITE BLOOD COUNT (AUTO) 10.4 K/uL (4.3-11.0)
[2018-05-20 10:13] LABS: CALCIUM, SERUM 9.3 mg/dL (8.5-10.1); MAGNESIUM 1.4 mg/dL (1.8-2.4); PHOSPHORUS 2.4 mg/dL (2.5-4.9); POTASSIUM 3.6 mmol/L (3.5-5.1)
--- NOTE | 2018-05-20 11:20 | NUR ---
MEDICATION CLEOCIN IS STILL NOT AVAILABLE. PER KASSI AT THE PHARMACY MEDICATION WAS ORDERED FROM AN OUTSIDE PHARMACY. AWAITING FOR DELIVERY AT THIS TIME.
--- NOTE | 2018-05-20 13:30 | NUR ---
REPORTED TO DR. OSORIO ABOUT PATIENT'S ELEVATED PLATELET COUNT OF 518. RECEIVED ORDER FOR ASPIRIN 81MG PO DAILY. READ BACK AND VERIFIED. NOTED AND CARRIED OUT AT THIS TIME.
[2018-05-20] MEDS: ASPIRIN 81 MG TAB.CHEW PO SCH (14:54)
--- NOTE | 2018-05-20 15:01 | NUR ---
PATIENT REFUSES FULL SKIN CHECK. REFUSES PERSONAL HYGIENE, SAID HE WILL CHANGE HIS BED HIMSELF. SUPPLIES PROVIDED IN THE ROOM. WILL CONTINUE TO MONITOR.
[2018-05-20 16:00] VITALS: BP 120/60
[2018-05-20 20:00] VITALS: BP 121/66
--- NOTE | 2018-05-20 20:00 | NUR ---
MS RN OPENING NOTE RECEIVED PATIENT IN BED. ALERT ORIENTED X3. ON ROOM AIR TOLERATING WELL. IN NO APPARENT DISTRESS OR DISCOMFORT AT THIS TIME. RESPIRATIONS EVEN AND UNLABORED. MARIPOSA PAIN AND SOB AT THIS TIME. ABLE TO COMMUNICATE NEEDS. DRESSING ON LEFT ELBOW IS CLEAN AND INTACT. PATIENT KEPT COMFORTABLE. ALL NEEDS ATTENDED. SAFETY MEASURES IN PLACE, BED IN LOW LOCKED POSITION, SIDE RAILS UP X2, CALL LIGHT WITHIN EASY REACH. WILL CONTINUE TO MONITOR.
--- NOTE | 2018-05-21 01:59 | NUR ---
RN NOTES: PATIENT REFUSED SKIN ASSESSMENT AND PICTURES TAKEN . ENCOURAGED X3 EXPLAINED RISKS AND BENEFITS ,STILL REFUSED , WILL CONTINUE TO MONITOR.
[2018-05-21] MEDS: CLINDAMYCIN HCL 150 MG CAPSULE PO SCH (02:49)
--- NOTE | 2018-05-21 03:17 | NUR ---
WILL CONTINUE WITH PLAN OF CARE AND CONTINUE TO MONITOR. Addendum: 05/21/18 at 0318 by ISMAEL OWENS RN Amended: Links added.
--- NOTE | 2018-05-21 06:46 | NUR ---
RN CLOSING NOTES PATIENT RESTING AT THIS TIME IN STABLE CONDITION . NO ACUTE DISTRESS NOTED , ALL NEEDS ATTENDED AND PROVIDED. ALL DUE MEDICATIONS GIVEN ORDERED. KEPT PATIENT SAFE AND COMFORTABLE, CALL LIGHT IN REACH. ENDORSED TO ON COMING RN FOR CONTINUITY OF CARE.
--- NOTE | 2018-05-21 07:45 | NUR ---
MS RN OPENING NOTE RECEIVED PT IN BED, ALERT AND ORIENTED X4. DENIES N/V, CHEST PAIN, SOB. BREATHING IS EVEN AND UNLABORED ON ROOM AIR. L UPPER ARM #20G IV IS SALINE LOCKED WITHOUT REDNESS OR SWELLING. NEUROVASCULAR STATUS AT BASELINE. PT IS REQUESTING TO TAKE A SHOWER HOWEVER THERE IS NO ORDER PLACED. INFORMED PT THAT THE NURSE WILL DISCUSS WITH DOCTOR REGARDING OBTAINING AN ORDER TO SHOWER AND EXPLAINED RISKS AND BENEFITS. PT VERBALIZED AGREEMENT AND STATED HE WILL WAIT UNTIL THE NURSE SPEAKS WITH THE DOCTOR. CONTACT PRECAUTIONS MAINTAINED. ALL NEEDS ATTENDED TO. BED IS LOCKED AND IN LOWEST POSITION, SIDE RAILS UP X2, CALL LIGHT WITHIN REACH.
[2018-05-21 08:00] VITALS: BP 120/69
--- NOTE | 2018-05-21 08:32 | NUR ---
MS RN SHOWER PER DR. KASSI OSORIO, [facility] FOR PT TO SHOWER. WILL INFORM PT AND INITIATE ORDER.
--- NOTE | 2018-05-21 09:15 | NUR ---
MS CHONG RAZA SPOKE WITH ALBA IN PHARMACY AND REQUESTED RY BE SENT UP, PER ALBA THEY WILL SEND SOON.
[2018-05-21] MEDS: ASPIRIN 81 MG TAB.CHEW PO SCH (09:53)
[2018-05-21] MEDS: LACTOBACILLUS RHAMNOSUS GG 1 EACH CAP.SPRINK PO SCH (09:53)
[2018-05-21] MEDS: DAKINS QUARTER STRENGTH (0.125%) 480 ML BOTTLE TOP SCH (09:53)
[2018-05-21] MEDS: MUPIROCIN OINT 2% 22 GM TUBE SCH (09:54)
[2018-05-21] MEDS ORDERED: CLINDAMYCIN HCL 150 MG CAPSULE PO SCH (10:00)
--- NOTE | 2018-05-21 10:30 | NUR ---
MS RN PT LEFT FACILITY AGAINST MEDICAL ADVICE 0954: AM MEDS GIVEN TO PT ORDERED. 1020: THE NURSE ANSWERED A CALL LIGHT AND SPOKE WITH PT AND MOTHER TRACIE. PER TRACIE "A DOCTOR CAME IN AND TOLD US WE ARE DISCHARGED". THE NURSE ASKED WHICH DOCTOR, PER TRACIE "I AM NOT SURE I WASN'T PAYING ATTENTION TO THEIR FACE". THE NURSE INFORMED TRACIE AND THE PT THAT THERE IS NO DISCHARGE ORDER RIGHT NOW AND THAT THE PT IS NOT YET MEDICALLY CLEARED TO GO HOME. PER TRACIE "OKAY THAT IS GOOD, WE NEED HIS ANKLE TO BE FIXED BEFORE HE GOES". TRACIE REQUESTED TO BE CALLED AT [phone] TO BE INFORMED OF THE PT'S D/C SINCE SHE WOULD BE LEAVING SHORTLY. TRACIE ALSO GAVE THE NUMBER OF THE PT SISTER ELIAS WHICH IS [phone] THE NURSE LEFT THE ROOM WITH THE PT SITTING AT THE EDGE OF THE BED AND THE MOTHER SITTING IN THE CHAIR NEXT TO HIM. 1045: THE NURSE ENTERED THE PT ROOM TO GIVE CLEOCIN ORDERED. THE NURSE FOUND THE PT AND MOTHER TO BE GONE FROM THE ROOM, HOWEVER THE PT LEFT HIS WATER BOTTLE, 2 LIVE GOLDFISH, AND KEYCHAIN ON THE BEDSIDE TABLE. THE NURSE INFORMED ELECTRONICS INSTALLER DIANE. THE NURSE LOOKED IN THE BATHROOM, IN EACH GUEST BATHROOM, IN EACH EMPTY PATIENT ROOM, IN THE STAIRWELL, AND THE ELEVATOR. THE NURSE ASKED THE TELE MONITOR MEGAN IF HE HAD SEEN THE PT AND MOTHER LEAVE, MEGAN STATED "NO". THE NURSE ASKED ANIMAL SHELTER SUPERVISOR AMADEO IF SHE HAD SEEN THE PT AND MOTHER LEAVE, AMADEO STATED "NO". THE NURSE WENT DOWNSTAIRS TO CHECK BOTH DESIGNATED SMOKING SITES, THE CAFETERIA, THE PARKING LOTS, THE EMERGENCY WAITING ROOM AND DID NOT FIND THE PATIENT. PT LEFT THE UNIT WITH A LEFT UPPER ARM #20G IV IN. 1055: PER SECURITY, DURING ROUNDING ON THE EMERGENCY ROOM, TWO PEOPLE FITTING THE DESCRIPTION OF THE PT AND MOTHER WERE SEEN WALKING IN THE EMERGENCY ROOM PARKING LOT TOWARDS [facility]. 1100: CALLED TRACIE AND YULY AT NUMBERS PROVIDED EARLIER. SENT TO [employer] FOR BOTH NUMBER, LEFT [employer] REQUESTING TO BE CONTACTED REGARDING PT AT [phone]. 1115: PT AND MOTHER HAVE STILL NOT RETURNED, NO CALL BACK TO UNIT, PER SECURITY THERE IS NO SIGN OF PT AND MOTHER AROUND PARKING LOTS OR SIDE STREETS. 1203: DR KASSI OSORIO NOTIFIED OF PT LEAVING. 1230: PER NURSING REGISTERED NURSE CARDIAC, [employer] TO BE NOTIFIED BY CONTRACTING SPECIALIST.
--- NOTE | 2018-05-21 14:21 | NUR ---
financial services technician received call from charge nurse Martha reporting that pt had awoled from hospital. Pt had a Hep Lock and past substance abuse. SW called non emergency [employer] ([phone]) and left incident report with Nurse Practitioner Adult 687 at 2:00pm incident number [phone]. CHRISTI updated charge nurse Martha with aforementioned information.
== END 2018-05-21 10:30 | disposition left against medical advice (07) | DRG 349 ==
LOC: ER 06:23 → MED 08:59
PROVIDERS: ADMIT Nurse Practitioner Acute Care; ATTEND Nurse Practitioner Acute Care
PROC: 0QSHXZZ Reposition Left Tibia, External Approach (ICD-10-PCS; principal; 2018-05-18 14:00)
PROC: 0QSKXZZ Reposition Left Fibula, External Approach (ICD-10-PCS; principal; 2018-05-18 14:00)
DX: T84.7XXA Infection and inflammatory reaction due to other internal orthopedic prosthetic devices, implants and grafts, initial encounter (principal); F22 Delusional disorders; S82.62XA Displaced fracture of lateral malleolus of left fibula, initial encounter for closed fracture; A49.02 Methicillin resistant Staphylococcus aureus infection, unspecified site; F15.129 Other stimulant abuse with intoxication, unspecified; Z59.0 Homelessness; X58.XXXA Exposure to other specified factors, initial encounter; Y92.9 Unspecified place or not applicable; Z22.322 Carrier or suspected carrier of Methicillin resistant Staphylococcus aureus; S82.52XA Displaced fracture of medial malleolus of left tibia, initial encounter for closed fracture; L03.113 Cellulitis of right upper limb
CPT/HCPCS: 36415; 71045-TC; 73060-TC; 73080-TC; 73600-TC; 73610-TC; 80048-TC; 80061-TC; 80202-TC; 80305; 81000-TC; 83735-TC; 84100-TC; 85025-TC; 85610-TC; 85652-TC; 85730-TC; 86140-TC; 86850-TC; 87070-TC; 87081-TC; 97110-TC; 97530-TC; A4606; A6209; A6253; A6402; G0378; G0480; G0500; J1100; J1885; J2250; J2405; J2543; J2704; J3370; J3475; J3480; J3490; J7030; J7060; Z7610